=== PATIENT | male | born 1980 | race Caucasian/White ===

== ENCOUNTER 2019-08-21 06:14 | Emergency (ER) | payer BC, SELFPAY ==
[~2019-08-21] VITALS: Ht 175.3 cm; Wt 65.0 kg
[2019-08-21] MEDS ORDERED: IBUPROFEN 600 MG TAB PO ONE (07:00)
[2019-08-21 07:22] LABS: BASO # 0.1 10^3/uL (0.0-0.2); BASO % 0.6 % (0.0-1.0); EOS # 0.4 10^3/uL (0.0-0.5); EOS % 3.2 % (0.0-3.0); HEMATOCRIT 46.5 % (42.0-52.0); HEMOGLOBIN 15.3 g/dl (13.5-17.5); LYMPH # 2.4 10^3/uL (1.5-5.0); LYMPH % 19.8 % (24.0-44.0); MEAN CORPUSCULAR HEMOGLOBIN 29.4 pg (27.0-33.0); MEAN CORPUSCULAR HGB CONC 32.9 g/dl (32.0-36.5); MEAN CORPUSCULAR VOLUME 89.3 fl (80.0-96.0); MONO % 8.1 % (0.0-5.0); NEUTROPHILS # 8.3 10^3/uL (1.5-8.5); NEUTROPHILS % 67.9 % (36.0-66.0); PLATELET COUNT, AUTOMATED 310 10^3/uL (150-450); RED BLOOD COUNT 5.21 10^6/uL (4.30-6.10); WHITE BLOOD COUNT 12.2 10^3/uL (4.0-10.0)
[2019-08-21] MEDS ORDERED: KEFL500C17 PO (09:14)
[2019-08-21 09:24] VITALS: BP 114/57
--- NOTE | 2019-08-21 09:27 | REP ---
Left middle finger ultrasound of a palpable lump: Ultrasonography of the palpable lump of the left middle finger identifies a solid mass with internal vascular flow measuring 1.4 x 0.7 by 1.0 cm. There is edema in the soft tissues adjacent to the mass. Electronically Signed by Sina Kaufman MD 08/21/2019 09:18 A
[2019-08-21 10:03] LABS: ERYTHROCYTE SEDIMENTATION RATE 3 mm/hr (0-15)
--- NOTE | 2019-08-21 12:30 | ED PDOC ---
Post-Departure Follow-Up dr serrano faxed formal report of extremity limited us for fu Fahad Mott MD Aug 21, 2019 12:30
== END 2019-08-21 09:27 | disposition home or self-care (01) ==
LOC: M ED 06:14
DX: M67.442 Ganglion, left hand (principal); F17.210 Nicotine dependence, cigarettes, uncomplicated; Z88.5 Allergy status to narcotic agent

== ENCOUNTER → 2024-06-11 | Outpatient (CLI) | payer OTHER ==
[~2024-06-11] MED LIST: KEFL500C17 PO
[2024-06-11 15:21] LABS: ALBUMIN 3.4 G/DL (3.2-5.2); ALKALINE PHOSPHATASE 80 U/L (40-129); ALT/SGPT 29 U/L (7.0-40); AST/SGOT 18 U/L (<34); BILIRUBIN,TOTAL 0.2 MG/DL (0.3-1.2); BLOOD UREA NITROGEN 13 MG/DL (9-23); CALCIUM LEVEL 10.1 MG/DL (8.5-10.1); CARBON DIOXIDE LEVEL 28 MMOL/L (20-31); CHLORIDE LEVEL 106 MMOL/L (98-107); CREATININE FOR GFR 0.58 MG/DL (0.70-1.30); GLOMERULAR FILTRATION RATE > 60.0 (>60); GLUCOSE, FASTING 94 MG/DL (60-100); POTASSIUM SERUM 5.1 MMOL/L (3.5-5.1); SODIUM LEVEL 138 MMOL/L (136-145); TOTAL PROTEIN 7.3 G/DL (5.7-8.2)
[2024-06-11 15:27] LABS: BASO # 0.1 10^3/uL (0.0-0.2); BASO % 1.1 % (0.0-1.0); EOS # 0.6 10^3/uL (0.0-0.5); EOS % 5.2 % (0.0-3.0); HEMATOCRIT 38.4 % (42.0-52.0); HEMOGLOBIN 12.7 g/dl (13.5-17.5); LYMPH # 3.6 10^3/uL (1.5-5.0); LYMPH % 29.3 % (24.0-44.0); MEAN CORPUSCULAR HEMOGLOBIN 30.3 pg (27.0-33.0); MEAN CORPUSCULAR HGB CONC 33.1 g/dl (32.0-36.5); MEAN CORPUSCULAR VOLUME 91.6 fl (80.0-96.0); MONO # 1.2 10^3/uL (0.0-0.8); MONO % 9.6 % (2.0-8.0); NEUTROPHILS # 6.7 10^3/uL (1.5-8.5); NEUTROPHILS % 54.6 % (36.0-66.0); PLATELET COUNT, AUTOMATED 457 10^3/uL (150-450); RED BLOOD COUNT 4.19 10^6/uL (4.30-6.10); WHITE BLOOD COUNT 12.2 10^3/uL (4.0-10.0)
== END ==
LOC: M PLALAB 13:14
PROVIDERS: ATTEND Physician Assistant
DX: I73.9 Peripheral vascular disease, unspecified (principal)

== ENCOUNTER → 2025-04-04 | Outpatient (REF) | payer OTHER | LOC: M LAB REF 15:02 | PROVIDERS: ATTEND Surgery | DX: L72.11 Pilar cyst (principal) ==

== ENCOUNTER → 2025-05-09 | Outpatient (REF) | payer OTHER | LOC: M LAB REF 15:10 | PROVIDERS: ATTEND Surgery | DX: L72.0 Epidermal cyst (principal) ==